=== PATIENT | female | born 1980 | race Caucasian/White ===

== ENCOUNTER 2017-08-04 07:06 | Day surgery (SDC) | payer OTHER ==
[~2017-08-04] VITALS: Ht 167.6 cm; Wt 63.5 kg
[2017-08-04] MEDS ORDERED: BACITRACIN ZINC 15 GM TOPICAL OINTMENT TP ONE (09:46)
[2017-08-04] MEDS ORDERED: ROCURONIUM BROMIDE 10 MG/ML (ZEMURON) IV ONE (09:46)
[2017-08-04] MEDS ORDERED: fentaNYL CITRATE/PF 100 MCG/2 ML AMP IVP ONE (09:46)
[2017-08-04] MEDS ORDERED: OXYMETAZOLINE HCL 0.05% NASAL SPRAY NS ONE (09:46)
[2017-08-04] MEDS ORDERED: MIDAZOLAM HCL 5 MG/5 ML VIAL IVP ONE (09:46)
[2017-08-04] MEDS ORDERED: SEVOFLURANE 15 MIN GAS INH ONE (09:46)
[2017-08-04] MEDS ORDERED: COCAINE 4% SOLUTION TP ONE ×2 (09:46→10:05)
[2017-08-04] MEDS ORDERED: NS 1000 ML BAG IV ONE (09:46)
[2017-08-04] MEDS ORDERED: DEXAMETHASONE SOD PHOSPHATE 4 MG/ML VIAL IVP ONE (09:46)
[2017-08-04] MEDS ORDERED: PROPOFOL 200MG/ 20ML VIAL (DIPRIVAN) IV ONE (09:46)
[2017-08-04] MEDS ORDERED: LIDOCAINE/EPI 1% 1:100000 20 ML VIAL INJ ONE (09:46)
[2017-08-04] MEDS ORDERED: NS IRRIG SOLN 1000 ML IR ONE (09:46)
[2017-08-04] MEDS ORDERED: DEXAMETHASONE SOD PHOSPHATE 4 MG/ML VIAL ONE (10:29)
[2017-08-04] MEDS ORDERED: LR 1,000 ML IV ONE (10:33)
[2017-08-04] MEDS ORDERED: NALBUPHINE HCL 10 MG/ML AMP IVP PRN (10:45)
[2017-08-04] MEDS ORDERED: fentaNYL CITRATE/PF 100 MCG/2 ML AMP IVP PRN (10:45)
[2017-08-04] MEDS ORDERED: DIPHENHYDRAMINE INJ 50 MG/ML VIAL IVP PRN (10:45)
[2017-08-04] MEDS ORDERED: ONDANSETRON HCL 4 MG/2 ML VIAL IVP PRN ×2 (10:45)
[2017-08-04] MEDS ORDERED: NALOXONE HCL 0.4 MG/ML AMP (NARCAN) IVP PRN (10:45)
[2017-08-04] MEDS ORDERED: ePHEDrine sulfate 50 MG/ML VIAL IVP PRN (10:45)
[2017-08-04 13:10] VITALS: BP_SYST 137
== END 2017-08-04 12:55 | disposition home or self-care (01) ==
LOC: SDS 07:06 → SMU 07:07 → SDS 12:55
PROVIDERS: ATTEND Otolaryngology
DX: J34.3 Hypertrophy of nasal turbinates (principal); J34.89 Other specified disorders of nose and nasal sinuses
CPT/HCPCS: 30140; 31240; J1100; J2250; J2704; J3010; J7030; J7120